=== PATIENT | female | born 1935 | race Caucasian/White ===

== ENCOUNTER 2022-01-08 11:54 | Emergency (ER) | payer MEDICARE, BC ==
[~2022-01-08] VITALS: Ht 162.6 cm; Wt 50.0 kg
[2022-01-08] MEDS ORDERED: LOPRESSOR 225 MG/TAB PO (12:11)
[2022-01-08] MEDS ORDERED: PRESERVISION A1 EAC1 PO (12:12)
[2022-01-08 12:34] LABS: BASO # 0.02 K/mm3 (0.02-0.10); EOS # 0.01 K/mm3 (0.04-0.40); EOS % 0.2 % (1.0-5.0); HEMATOCRIT 38.8 % (37.0-47.0); HEMOGLOBIN 12.5 g/dL (12.5-16.0); LYMPH# 0.54 K/mm3 (1.50-4.00); MEAN CELL VOLUME 86 fl (78-100); MEAN CORPUSCULAR HEMOGLOBIN 28 pg (27-31); MEAN CORPUSCULAR HGB CONC 32 g/dL (33-37); MEAN PLATELET VOLUME 9.8 fl (7.4-10.4); MONO # 0.56 K/mm3 (0.20-0.80); NEU # 4.53 K/mm3 (1.40-6.50); PLATELET COUNT 180 K/mm3 (130-400); RED BLOOD COUNT 4.54 M/mm3 (4.10-5.30); WHITE BLOOD COUNT 5.7 K/mm3 (4.8-10.8)
[2022-01-08 12:46] LABS: ALBUMIN 3.9 g/dL (3.4-4.8)
[2022-01-08 12:47] LABS: CALCIUM 9.2 mg/dL (8.3-10.5)
[2022-01-08 12:49] LABS: TOTAL PROTEIN 6.5 g/dL (6.2-8.1)
[2022-01-08 12:50] LABS: TOTAL BILIRUBIN 0.6 mg/dL (0.2-1.2)
[2022-01-08 14:00] LABS: URINE APPEARANCE HAZY; URINE BILIRUBIN NEGATIVE (NEGATIVE); URINE BLOOD 50 ery/uL (NEGATIVE); URINE COLOR YELLOW; URINE GLUCOSE NEGATIVE (NEGATIVE); URINE KETONE 2+ (NEGATIVE); URINE LEUKOCYTE ESTERASE NEGATIVE (NEGATIVE); URINE NITRATE NEGATIVE (NEGATIVE); URINE PROTEIN(semi-quant) TRACE (NEGATIVE); URINE UROBILINOGEN NORMAL (NORMAL); URINE WBC 0-1 /hpf (0-3)
[2022-01-08 16:46] VITALS: BP 140/66
== END 2022-01-08 17:07 | disposition home or self-care (01) ==
LOC: ED 11:54
PROVIDERS: Physician Assistant
DX: U07.1 COVID-19 (principal); Z87.891 Personal history of nicotine dependence
CPT/HCPCS: J7030

== ENCOUNTER → 2023-12-03 | Outpatient (CLI) | payer MEDICARE, BC ==
[~2023-12-03] MED LIST: LOPRESSOR 225 MG/TAB PO; PRESERVISION A1 EAC1 PO
[2023-12-03 14:43] LABS: BASO # 0.04 K/mm3 (0.02-0.10); EOS # 0.02 K/mm3 (0.04-0.40); EOS % 0.3 % (1.0-5.0); HEMATOCRIT 37.9 % (37.0-47.0); LYMPH# 1.21 K/mm3 (1.50-4.00); MEAN CELL VOLUME 86 fl (78-100); MEAN CORPUSCULAR HEMOGLOBIN 27 pg (27-31); MEAN CORPUSCULAR HGB CONC 32 g/dL (33-37); MEAN PLATELET VOLUME 9.2 fl (7.4-10.4); MONO # 0.45 K/mm3 (0.20-0.80); NEU # 5.36 K/mm3 (1.40-6.50); PLATELET COUNT 268 K/mm3 (130-400); RED BLOOD COUNT 4.42 M/mm3 (4.10-5.30); RED CELL DISTRIBUTION WIDTH 13.7 % (11.5-14.5); WHITE BLOOD COUNT 7.1 K/mm3 (4.8-10.8)
[2023-12-03 14:52] LABS: CALCIUM 9.4 mg/dL (8.3-10.5)
[2023-12-03 14:53] LABS: TOTAL PROTEIN 6.7 g/dL (6.2-8.1)
[2023-12-03 14:55] LABS: TOTAL BILIRUBIN 0.4 mg/dL (0.2-1.2)
[2023-12-03 15:00] LABS: MAGNESIUM 1.77 mg/dL (1.60-2.60)
== END ==
LOC: LAB 14:17
PROVIDERS: Internal Medicine
DX: I10 Essential (primary) hypertension (principal); K90.9 Intestinal malabsorption, unspecified; E78.2 Mixed hyperlipidemia